=== PATIENT | male | born 1995 | race Two or more races ===

== ENCOUNTER 2024-06-15 14:03 | Emergency (ER) | payer BC ==
[~2024-06-15] VITALS: Ht 188 cm; Wt 86.0 kg
[2024-06-15 14:08] VITALS: O2SAT 98
[2024-06-15 16:41] VITALS: BP 114/64; PULSE 82; RESP 18; TEMP 37.05852; O2SAT 98
== END 2024-06-15 16:42 | disposition home or self-care (01) ==
LOC: ER 14:03
DX: T17.898A Other foreign object in other parts of respiratory tract causing other injury, initial encounter (principal); X58.XXXA Exposure to other specified factors, initial encounter; Y93.89 Activity, other specified; Y92.89 Other specified places as the place of occurrence of the external cause; Y99.8 Other external cause status
CPT/HCPCS: 70360; 71045; 99284